=== PATIENT | female | born 1965 | race Hispanic/Latino ===

== ENCOUNTER 2024-06-11 10:10 | Emergency (ER) | payer SELFPAY ==
[~2024-06-11] VITALS: Ht 157.5 cm; Wt 68.0 kg
[2024-06-11] MEDS: ondanSETRON 4MG INJ IVP STA (10:32)
[2024-06-11] MEDS: FENTanyl CITRate PF 50 MCG/1 ML 2ML VIAL IVP STA (10:32)
[2024-06-11] MEDS ORDERED: MIDAZOLAM HCL 1 MG/ML 5ML VIAL IVP STA (10:32)
[2024-06-11] MEDS: MIDAZOLAM HCL 1 MG/ML 2ML VIAL IVP ONE ×2 (10:51→10:53)
[2024-06-11] MEDS: MIDAZOLAM HCL 1 MG/ML 2ML VIAL ONE ×2 (10:53)
[2024-06-11] MEDS: ketaMINE 50MG/ML SYRINGE 50 MG/ML DISP.SYRIN IV STA (10:53)
[2024-06-11 11:55] VITALS: BP 127/72; PULSE 78; RESP 22; TEMP 98.8; O2SAT 98
== END 2024-06-11 12:00 | disposition home or self-care (01) ==
LOC: EDH 10:10
DX: S43.014A Anterior dislocation of right humerus, initial encounter (principal); X58.XXXA Exposure to other specified factors, initial encounter; Y93.89 Activity, other specified; Y92.89 Other specified places as the place of occurrence of the external cause; Y99.8 Other external cause status
CPT/HCPCS: 99285; 23650; 96374; 96375; 73030 ×2; 99152; J3010; J2250 ×2; J2405; J3490